=== PATIENT | female | born 1980 | race Caucasian/White ===

== ENCOUNTER → 2017-08-12 | Outpatient (CLI) | payer BC ==
[2015-01-19 16:39] VITALS: BMI 35.2
[~2017-08-12] MED LIST: ALBUDR INH; ALPR-429 PO; AMOX-559 PO; FLUT16SP19; MECL25TA9 PO; OND4; ONDA4TAB PO; OXYC-865 PO; PRED20TA6 PO
== END ==
LOC: LAB 15:30
PROVIDERS: ATTEND Obstetrics & Gynecology
DX: E55.9 Vitamin D deficiency, unspecified (principal); N97.0 Female infertility associated with anovulation
CPT/HCPCS: 36415; 82306; 84439; 84443

== ENCOUNTER → 2017-11-25 | Outpatient (CLI) | payer BC ==
[2015-01-19 16:39] VITALS: BMI 35.2
[2017-11-25 12:21] LABS: PLATELET COUNT, AUTOMATED 296 K/uL (150-450)
== END ==
LOC: LAB 11:32
PROVIDERS: ATTEND Obstetrics & Gynecology
DX: Z34.81 Encounter for supervision of other normal pregnancy, first trimester (principal); E55.9 Vitamin D deficiency, unspecified; N97.0 Female infertility associated with anovulation; Z98.891 History of uterine scar from previous surgery
CPT/HCPCS: 36415; 82306; 84443; 85025; 86592; 86762; 86850; 86900; 86901; 87340

== ENCOUNTER 2018-01-18 11:01 | Emergency (ER) | payer BC ==
[2015-01-19 16:39] VITALS: Wt 71.2 kg
[2018-01-18] MEDS ORDERED: PREN-127 PO (11:14)
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
[2018-01-18 12:10] VITALS: BP 95/73
== END 2018-01-18 12:15 | disposition home or self-care (01) ==
LOC: ER 11:22
DX: O26.891 Other specified pregnancy related conditions, first trimester (principal); Z3A.11 11 weeks gestation of pregnancy; R10.84 Generalized abdominal pain; V87.7XXA Person injured in collision between other specified motor vehicles (traffic), initial encounter
CPT/HCPCS: 99283

== ENCOUNTER → 2018-05-12 | Outpatient (CLI) | payer BC ==
[2015-01-19 16:39] VITALS: BMI 35.2
[~2018-05-12] MED LIST changes: +PREN-127 PO
[2018-05-12 10:52] LABS: PLATELET COUNT, AUTOMATED 259 K/uL (150-450)
== END ==
LOC: LAB 08:43
PROVIDERS: ATTEND Advanced Practice Midwife
DX: Z34.82 Encounter for supervision of other normal pregnancy, second trimester (principal)
CPT/HCPCS: 36415; 82950; 85025; 86787; 86850